=== PATIENT | female | born 1975 | race Asian ===

== ENCOUNTER → 2016-04-07 | Outpatient (CLI) | payer BC ==
[~2016-04-07] MED LIST: FERR325T5 PO; HERBAL PO; PRENTAB26 PO
[2016-04-07 09:59] LABS: ALT/SGPT 12 U/L (12-78); BLOOD UREA NITROGEN 11 mg/dl (7-18); BUN/CREATININE RATIO 19.1 (10-20); CALCIUM 8.6 mg/dl (8.5-10.1); CARBON DIOXIDE 22 mmol/L (21-32); CHLORIDE 106 mmol/L (98-107); CHOLESTEROL 137 mg/dl (0-200); CREATININE 0.57 mg/dl (0.60-1.20); GLUCOSE 86 mg/dl (70-99); SODIUM 138 mmol/L (136-145)
[2016-04-07 10:02] LABS: ALB/GLOB RATIO 1.1 (0.9-2); ALKALINE PHOSPHATASE 33 U/L (45-117); AST/SGOT 11 U/L (15-37); HDL CHOLESTEROL 70 mg/dl; LDL CHOLESTEROL CALCULATED 50 mg/dl; TRIGLYCERIDES 85 mg/dl (0-150); VERY LOW DENSITY LIPOPROT CALC 17 mg/dl
[2016-04-07 10:08] LABS: ESTIMATED AVERAGE GLUCOSE 111 mg/dl; HA1C FLAG Normal (Normal)
== END | disposition home or self-care (01) ==
LOC: C.LAB 08:41
PROVIDERS: ATTEND Family Medicine
DX: E11.9 Type 2 diabetes mellitus without complications (principal)

== ENCOUNTER → 2016-04-09 | Outpatient (CLI) | payer BC ==
[2016-04-09 16:44] LABS: BASO % 0.2 %; BASO ABS # 0.02 K/uL (0-0.2); COMPLETE YES; EOS % 1.2 %; HEMATOCRIT 37.4 % (37-47); IG% 0.2 %; LYMPH % 17.2 %; LYMPH ABS # 1.77 K/uL (1.2-3.4); MEAN CELL VOLUME 88.4 fL (80-100); MEAN CORPUSCULAR HEMOGLOBIN 29.3 pg (25-34); MEAN CORPUSCULAR HGB CONC 33.2 g/dl (32-36); MEAN PLATELET VOLUME 10.4 fL (7.4-10.4); NEUT % 77.2 %; PLATELET COUNT 199 K/uL (130-400); RED BLOOD COUNT 4.23 M/uL (4.2-5.4); WHITE BLOOD COUNT 10.31 K/uL (4.8-10.8)
[2016-04-09 16:46] LABS: URINE APPEARANCE CLEAR (CLEAR); URINE BILIRUBIN NEG (NEG); URINE COLOR YELLOW; URINE EPITHELIAL CELL AUTO >30 /lpf (0-5); URINE NITRITE NEG (NEG); URINE PH 5.5 (4.5-7.5); URINE SPECIFIC GRAVITY 1.021 (1.000-1.030); UROBILINOGEN NEG (NEG)
[2016-04-09 16:50] LABS: MANUAL MICROSCOPIC REQUIRED? NO; REVIEW REQ? NO
[2016-04-14 09:14] LABS: CHLAMYDIA TRACH RNA*** NOT DETECTED (NOT DETECTED); GC (NEIS GONORRHOEAE)RNA** NOT DETECTED (NOT DETECTED)
== END | disposition home or self-care (01) ==
LOC: C.LAB1850 15:02
PROVIDERS: ATTEND Obstetrics & Gynecology
DX: O09.521 Supervision of elderly multigravida, first trimester (principal)

== ENCOUNTER → 2016-06-08 | Outpatient (CLI) | payer BC ==
[2016-06-09 15:26] LABS: AFP CONCENTRATION 23.4 NG/ML; AFP MULTIPLE OF MEDIAN 0.66; AFPTS GESTATIONAL AGE 16.1 WEEKS; AFPTS INSULIN DEP DIABETIC? YES; AFPTS MATERNAL WT 115 LBS; HISTORY OF NTD NO; REPEAT SAMPLE? NO
== END | disposition home or self-care (01) ==
LOC: C.LAB1850 09:29
PROVIDERS: ATTEND Obstetrics & Gynecology
DX: O09.522 Supervision of elderly multigravida, second trimester (principal)

== ENCOUNTER → 2016-09-01 | Outpatient (CLI) | payer BC ==
[2016-09-01 11:55] LABS: URINE APPEARANCE CLOUDY (CLEAR); URINE BILIRUBIN NEG (NEG); URINE COLOR DK YELLOW; URINE EPITHELIAL CELL AUTO >30 /lpf (0-5); URINE NITRITE NEG (NEG); URINE PH 5.5 (4.5-7.5); URINE SPECIFIC GRAVITY 1.035 (1.000-1.030); UROBILINOGEN NEG (NEG)
[2016-09-01 12:08] LABS: MANUAL MICROSCOPIC REQUIRED? NO; REVIEW REQ? YES
[2016-09-01 12:28] LABS: HEMATOCRIT 34.3 % (37-47)
== END | disposition home or self-care (01) ==
LOC: C.LAB1850 10:03
PROVIDERS: ATTEND Obstetrics & Gynecology
DX: O09.522 Supervision of elderly multigravida, second trimester (principal)

== ENCOUNTER 2016-10-24 22:32 | Outpatient (CLI) | payer BC ==
[~2016-10-24] VITALS: Ht 162.6 cm; Wt 62.0 kg
[2016-10-24 23:48] VITALS: Ht 162.6 cm; Wt 62.0 kg
== END 2016-10-25 | disposition home or self-care (01) ==
LOC: C.OPB 22:32 → C.LD 22:32 → C.OPB 10-25
PROVIDERS: ATTEND Obstetrics & Gynecology
DX: O26.893 Other specified pregnancy related conditions, third trimester (principal); Z3A.35 35 weeks gestation of pregnancy

== ENCOUNTER 2016-10-25 15:46 | Inpatient (IN) | payer BC ==
[~2016-10-25] VITALS: Ht 162.6 cm; Wt 63.0 kg
[2016-10-25] MEDS ORDERED: LACTATED RINGER'S 1000ML 1,000 ML IV PRN (15:53)
[2016-10-25] MEDS ORDERED: MISOPROSTOLTAB 50 MCG TAB PO ONE (16:00)
[2016-10-25 16:13] LABS: MEAN CORPUSCULAR HEMOGLOBIN 32.4 pg (25-34); MEAN CORPUSCULAR HGB CONC 33.4 g/dl (32-36); MEAN PLATELET VOLUME 10.4 fL (7.4-10.4); PLATELET COUNT 123 K/uL (130-400); WHITE BLOOD COUNT 7.85 K/uL (4.8-10.8)
[2016-10-25] MEDS ORDERED: PENICILLIN G POTASSIUM IV 6 MU in DEXTROSE 5% 250ML 250 ML IV ONE (16:15)
[2016-10-25 16:16] VITALS: Ht 162.6 cm; Wt 63.0 kg
[2016-10-25] MEDS: LACTATED RINGER'S 1000ML 1,000 ML IV SCH ×2 (16:26→23:53)
[2016-10-25] MEDS: PENICILLIN G POTASSIUM IV 3 MU in DEXTROSE 5% 100ML 100 ML IV PRN (20:29)
[2016-10-25] MEDS ORDERED: EpHEDrine SULFATE INJ 50 MG/ML AMP ONE (22:40)
[2016-10-25] MEDS ORDERED: BUPIVACAINE 0.25% 30 ML VIAL ONE (22:40)
[2016-10-25] MEDS ORDERED: FENTANYL 2MCG/ML ROPIV 1.25MG/ML 100ML BAG EPI ONE (22:41)
[2016-10-25] MEDS ORDERED: FENTANYL CITRATE INJ 50 MCG/1 ML 2 ML VIAL ONE (22:41)
[2016-10-25] MEDS ORDERED: LACTATED RINGER'S 1000ML 500 ML IV PRN (23:36)
[2016-10-25] MEDS ORDERED: NALOXONE HCL INJ 1 MG in SODIUM CHLORIDE 0.9% 1000ML 1,000 ML IV PRN (23:36)
[2016-10-25] MEDS ORDERED: NALBUPHINE HCL INJ 10 MG/ML AMP IV PRN (23:45)
[2016-10-25] MEDS ORDERED: DiphenhydrAMINE HCL 50 MG/ML VIAL IV PRN (23:45)
[2016-10-25] MEDS ORDERED: FENTANYL 2MCG/ML ROPIV 1.25MG/ML 100ML BAG EPI PRN (23:45)
[2016-10-25] MEDS ORDERED: NALOXONE HCL INJ 0.4 MG/1 ML VIAL/CARP IV PRN (23:45)
[2016-10-25] MEDS ORDERED: EpHEDrine SULFATE INJ 50 MG/ML AMP IV PRN (23:45)
[2016-10-25] MEDS ORDERED: ONDANSETRON INJ 2 MG/ML 2 ML VIAL IV PRN (23:45)
[2016-10-26] MEDS: PENICILLIN G POTASSIUM IV 3 MU in DEXTROSE 5% 100ML 100 ML IV PRN (00:54)
[2016-10-26] MEDS ORDERED: OXYTOCIN 30 UNITS/500ML NSS IV ONE (02:45)
[2016-10-26] MEDS ORDERED: ACETAMINOPHEN/CODEINE 300/30MG TAB PO PRN ×2 (04:45)
[2016-10-26] MEDS ORDERED: ACETAMINOPHEN 325 MG TAB PO PRN (04:45)
[2016-10-26] MEDS ORDERED: LANOLIN OINT EXT PRN ×2 (04:45)
[2016-10-26] MEDS ORDERED: DIPHTHERIA/TETANUS/PERTUSSIS 0.5 ML SYR/VIAL IM. ONE (04:45)
[2016-10-26] MEDS ORDERED: OXYCODONE/ACETAMINOPHEN 5-325 TAB PO PRN (04:45)
[2016-10-26] MEDS ORDERED: HYDROCORTISONE ACETATE 25 MG SUPP PR PRN (04:45)
[2016-10-26] MEDS ORDERED: BENZOCAINE 20% AER SPR 82.5 GM CAN EXT PRN (04:45)
[2016-10-26] MEDS ORDERED: OXYTOCIN 30 UNITS/500ML NSS IV PRN (04:45)
[2016-10-26] MEDS ORDERED: SUPERCREAM 0.870 % 15GM JAR EXT PRN (04:45)
--- NOTE | 2016-10-26 06:11 | DELIVERY SUMMARY ---
DATE OF OPERATION: 10/26/2016 Mrs. Pappas presented to labor and delivery on October 25 with premature ROM at 36 weeks. Her cervix was closed and thick at that time. IV penicillin was started, as she had a group B strep positive urinary tract infection in and she was given 5 mcg of oral Cytotec. The heart rate tracing was category 1. This put her into a good labor pattern. At some point later, she was checked and found to be 2 cm by nursing and was very uncomfortable and so, requested an epidural. She rapidly then progressed to fully dilated and on the first push with nursing, it was noted that the baby was likely in a breech position. At this time, I assessed the baby was, in fact, tanya breech. It was +2 to +3 cm station. I discussed briefly with the patient that generally, we perform section on breech babies, but that the baby was quite low on the pelvis and I am not sure this was even possible at this stage. I discussed, also, that vaginal breech delivery was something I had expertise in training in and as well the baby being only 36 weeks and this being her second baby, that delivering vaginally was going to be less risky at this point of the situation than section and they agreed. Patient pushed, the baby's back was then converted to anterior, once delivery of the buttocks and hips was performed. I was then able to release the legs by gentle pressure on each femur, one at a time. Moist towel was used and with the use of gentle traction, I was also able to lengthen the umbilical cord. We rotated the baby to release each arm, there was no nuchal arm, left first, then right and then the behavioral assistant, Alma Delia, aleah, held the feet as I gently put pressure inside of the baby's mouth to ensure baby's head was not overly extended on delivery of the head. Head was delivered easily with no excessive force. A live , cord clamped and cut, cord gases obtained. Placenta was removed with gentle traction. IV Pitocin started. A right medial lateral episiotomy had been performed prior to delivery to ensure most room for delivery of the baby's head. This was repaired with 3-0 Vicryl and it should be noted, her tissues were somewhat friable and I had to reinforce this several times due to tearing. Estimated blood loss was 400 mL. Patient was feeling a little unwell after delivery and lightheaded. As a result, we started another IV and she responded to a fluid bolus with an improvement in pressure and the way she was feeling. Sponge and instrument counts were correct. Estimated blood loss 400 mL. I attest to the content of the Intraoperative Record and any orders documented therein. Any exceptions are noted below. MTDD
--- NOTE | 2016-10-26 08:51 | Anesthesia Procedure Note ---
Anesthesia Epidural Removal Nt Date & Time Oct 26, 2016 at 08:51 Vital Signs Pain Intensity: 3.0 Vital Signs Past 12 Hours Date Time Temp Pulse Resp B/P (MAP) Pulse Ox O2 Delivery O2 Flow Rate FiO2 10/26/16 07:30 Room Air Notes Mental Status: alert / awake / arousable, participated in evaluation Nausea / Vomiting: adequately controlled Pain: adequately controlled Airway Patency, RR, SpO2: stable & adequate BP & HR: stable & adequate Hydration State: stable & adequate Neuraxial Anesthesia: was administered Anesthetic Complications: no major complications apparent, pt satisfied with anesthetic care Epidural: removed without complications, with tip intact
[2016-10-26] MEDS: PRENATAL VITAMIN TAB PO SCH (08:54)
[2016-10-26] MEDS: DOCUSATE SODIUM 100 MG CAP PO SCH ×2 (08:54→20:20)
[2016-10-26 11:45] VITALS: BP 96/67; PULSE 83; TEMP 37.3
[2016-10-26 15:30] VITALS: BP 100/68; PULSE 90; TEMP 36.7
[2016-10-26 19:00] VITALS: BP 101/66; PULSE 101; TEMP 37
[2016-10-26 23:36] VITALS: BP 90/55; PULSE 86; TEMP 36.5
--- NOTE | 2016-10-27 01:54 | OB/GYN Progress Note ---
[employer] Progress Note Date of Service Oct 27, 2016. Subjective conversation w/ patient, physical exam, chart review, lab review Ambulation: limited ambulation Voiding: no voiding problems Diet Tolerance: Regular Diet Lochia: Moderate Feeding Type: Breast Feeding Pain: 6/10 without pain meds Review of Systems Constitutional: No fever Respiratory: No shortness of breath Cardiac: No chest pain Abdomen: No nausea, No vomiting Female : No dysuria Objective Vital Signs Date Time Temp Pulse Resp B/P (MAP) Pulse Ox O2 Delivery O2 Flow Rate FiO2 10/26/16 23:37 Room Air 10/26/16 23:36 36.5 86 18 90/55 (67) Room Air 10/26/16 19:00 37.0 101 20 101/66 (78) Room Air 10/26/16 15:30 36.7 90 20 100/68 (79) Room Air 10/26/16 15:30 Room Air 10/26/16 11:45 37.3 83 18 96/67 (77) 10/26/16 11:15 Room Air 10/26/16 07:30 Room Air Physical Exam General Appearance: WELL-APPEARING Respiratory/Chest: lungs clear, normal breath sounds, no respiratory distress Cardiovascular: regular rate, rhythm Abdomen: normal bowel sounds, non tender, soft Fundus: Firm, Relation to Umbilicus Extremities: non-tender, no pedal edema Laboratory Results Last Resulted 10/25/16 16:05 Medications Current Inpatient Medications Medications (Trade) Dose Ordered Sig/Doreen Route Start Time Stop Time Status Last Admin Dose Admin Oxytocin (Pitocin IV) 30 units UD PRN IV 10/26/16 04:45 11/25/16 04:44 Benzocaine (Dermoplast Aero Spr) 1 appln PRN PRN EXT 10/26/16 04:45 11/25/16 04:44 Cocaine HCl (Supercream 0.870% Cr) BID PRN EXT 10/26/16 04:45 11/09/16 04:44 Hydrocortisone Acetate (Anusol Hc Supp) 25 mg BID PRN MA 10/26/16 04:45 11/25/16 04:44 Lanolin (Lanolin Oint) PRN PRN EXT 10/26/16 04:45 11/25/16 04:44 Prenat Multivit/ [place]/Iron/Folic Ac ( Vitamin Tab) 1 tab DAILY PO 10/26/16 08:00 11/25/16 07:59 10/26/16 08:54 1 TAB Ibuprofen (Motrin Tab) 600 mg Q4H PRN PO 10/26/16 04:45 11/25/16 04:44 Acetaminophen (Tylenol Tab) 650 mg Q6H PRN PO 10/26/16 04:45 11/25/16 04:44 10/26/16 13:30 650 MG Acetaminophen/ Codeine Phosphate (Tylenol w/ Codeine #3 Tab) 1 tab Q4H PRN PO 10/26/16 04:45 11/25/16 04:44 Acetaminophen/ Codeine Phosphate (Tylenol w/ Codeine #3 Tab) 2 tab Q4H PRN PO 10/26/16 04:45 11/25/16 04:44 Bisacodyl (Dulcolax Tab) 5 mg 20 PO 10/27/16 20:00 10/27/16 20:01 Bisacodyl (Dulcolax Supp) 10 mg DAILY PRN MA 10/28/16 07:00 Docusate Sodium (coLACE CAP) 100 mg BID PO 10/26/16 08:00 11/25/16 07:59 10/26/16 20:20 100 MG Assessment and Plan Post- Day Number: 1 Continue Routine Care: Resident Physician Supervision Note: I interviewed and examined the patient. Discussed with Dr. Anderson and agree with findings and plan as documented in the note. Any exceptions or clarifications are listed here: [None] Documented By: Ludmila Saldaña Angélica A/P: This is a 41 y/o female, , s/p breech normal vaginal delivery at 36 weeks. She is ambulating and clinically stable. Plan: - Vitals signs are reviewed and WNL (Tmax 37.3) - Last Hgb is 10.7 (10/25). This AM pending - Blood type A+, GBS pos, Rubella Immune - Routine care - Encourage ambulation, monitor and control pain with medication as needed, continue with regular diet as tolerated and monitor lochia - Stool softeners and sitz bath recommended - Encourage breast feeding and educate about breast feeding Resident Involvement: Resident Care Provided Care Provided: OB Delivery
[2016-10-27 07:33] LABS: HEMATOCRIT 22.6 % (37-47)
[2016-10-27 07:47] VITALS: BP 94/58; PULSE 96; TEMP 36.9; O2SAT 97
[2016-10-27] MEDS: PRENATAL VITAMIN TAB PO SCH (08:57)
[2016-10-27] MEDS: DOCUSATE SODIUM 100 MG CAP PO SCH ×2 (08:57→20:16)
[2016-10-27 11:28] VITALS: BP 93/61; PULSE 84; TEMP 37.1; O2SAT 96
[2016-10-27] MEDS: IBUPROFEN 600 MG TAB PO PRN (11:46)
[2016-10-27] MEDS: FERROUS SULFATE 325 MG TAB PO SCH ×2 (14:47→20:17)
[2016-10-27 16:20] VITALS: BP 92/59; PULSE 81; TEMP 36.9
[2016-10-27] MEDS ORDERED: BISACODYL 5 MG TABEC PO SCH (20:00)
--- NOTE | 2016-10-27 22:48 | Discharge Instructions ---
Discharge Instructions Date of Service Oct 27, 2016. Admission Reason for Admission: Labor Check Discharge Discharge Diagnosis / Problem: after delivery Discharge Goals Goal(s): Routine recovery after delivery Medications Continue Dispensed Medications: supercream, dermaplast, tucks, lansinoh Activity Recommendations Activity Limitations: per Instructions/Follow-up section . Instructions / Follow-Up Instructions / Follow-Up ACTIVITY RECOMMENDATIONS: * Gradual return to full activity over the next 2-3 weeks. * No lifting - nothing heavier than baby over the next 2-3 weeks. * Do not engage in vigorous exercise, sexual activity or sports until cleared by your physician. * Do not drive or operate any motorized equipment until cleared by your physician. * You may shower/bathe daily. MEDICATIONS: For discomfort or pain, you may use Acetaminophen (Tylenol), Ibuprofen (Advil), or Naproxen (Aleve) following the package directions. For constipation you may use Colace following the package directions. BREAST CARE: If you are not breast feeding: * Wear a supportive bra 24 hours a day for one to two weeks. * Avoid stimulating your breasts and nipples as much as possible during the first few weeks after delivery. * When taking a shower, have the warm water hit your back, not breasts. * When your breasts feel full, apply ice packs. Usually three to four times a day helps ease the discomfort. * Take a mild pain medication (Tylenol / Motrin) when you are uncomfortable. If breast feeding: * Use breast milk to lubricate nipples. Lansinoh cream may be used for sore nipples. You do not need to remove cream prior to breast feeding. If using a different brand of cream, check the label for directions regarding removal of cream prior to nursing. * Wear a supportive bra. * If having problems with breasts or breast feeding, call a web consultant or your health care provider. EPISIOTOMY CARE: After delivery, if you have an episiotomy (stitches), the following steps will ease discomfort and aid healing. * For the first 24 hours after delivery, place ice packs next to your episiotomy to help reduce swelling. * After the first 24 hour-period, sitz baths, either portable or in the tub, are suggested. A shower with a shower arm sprayed over the episiotomy may be comforting. * Yecenia care should be done after each voiding and bowel movement. Squirt warm water from a plastic bottle over the perineum (region of the body between the anus and urinary opening) and pat dry. * Use Dermoplast to ease discomfort. Shake container. [place] directly over the episiotomy. Place a Tucks on a clean sanitary pad next to your episiotomy. SPECIAL CARE INSTRUCTIONS: When you are discharged from the hospital, it is important for you to follow the instructions listed below: * During the first week at home, you should be able to care for yourself and your baby. In addition, the usual light household activities are encouraged. * Limit your activities to the way you feel. Do not try to clean the house or move furniture. Be sensible. * If you actively engage in sports and have done so up until the time of your delivery, you may resume these activities as soon as you feel able. This may take up to one month or even longer. Use good judgment. * Continue to take your vitamins for at least six weeks after the of your baby. * Your diet need not be limited unless you were on a special diet before your delivery. Breast-feeding mothers need around 2500 calories per day and at least 64-80 ounces of fluid per day (8 to 10 glasses). * You should eat foods from the four major food groups. Crash diets or fad diets are to be avoided. Eating lean meats, fresh fruits and vegetables, low-fat dairy products, high fiber foods and a regular exercise program, will help you get back to your pre- weight without putting your health at risk. * Constipation is sometimes a problem after delivery. Take a mild laxative as needed. If breast feeding, Milk of Magnesia is acceptable to use. You may use a suppository or Fleets enema if no episiotomy. * A daily shower or tub bath is suggested. Be sure to thoroughly and gently dry the perineum. * A bloody vaginal discharge will usually continue until around four weeks post . A small amount of bleeding may continue for as long as six weeks. Vaginal discharge changes from the bright red bleeding after delivery to pink then brownish and finally yellowish-pink before becoming white and disappearing. * Bleeding may increase with activity. Your first period may come in 4-8 weeks. If you are breast feeding, your period may be delayed even longer. * [place] (sex) can begin whenever both you and your partner feel comfortable and do not have any form of genital infection. It is recommended that you wait at least six weeks for internal and external healing to occur. If you have questions, please talk to your health care practitioner. A condom should be used to prevent infection and . * Foreplay, gentle intercourse and lubrication is very important the first several times to prevent pain. A water-based lubricant such as K-Y jelly or Astroglide may be used. * If you have RH negative blood and your baby is RH positive, you will receive RHOGAM by injection prior to discharge. The nurse will give you a card to keep with you that has the date and place that you received RHOGAM after delivery. * During your care, you had a Rubella screen done to check for the presence of rubella antibodies in your blood. If your test was negative, you will receive a Rubella vaccine prior to discharge. This vaccine may cause a fever, soreness at the injection site and flu-like symptoms. If these symptoms persist, notify your health care practitioner. is not advised for one month after a Rubella vaccine. * Verbalizes understanding of car seat law as reviewed with patient nursing. * Car Seat hand-out given and reviewed with patient by nursing. * Shaken baby information reviewed with patient by nursing. Call you doctor if: * Heavy bleeding (saturating several pads an hour) or passing clots the size of your fist. * A fever >101 degrees F (38.3 degrees C) on two occasions four hours apart and /or chills. * Unusual pain in the pelvic or vaginal areas. * "Baby Blues" lasting longer than two weeks. If you have any questions or concerns, call your health care practitioner at . FOLLOW UP VISIT: * Please call the office at to schedule a 6 week examination. It is important you keep this appointment. It is important for you to make arrangements for either yearly or twice yearly check-ups thereafter. Current Hospital Diet Patient's current hospital diet: Regular OB Diet Discharge Diet Recommended Diet: Regular Diet Pending Studies Studies pending at discharge: no Medical Emergencies . Who to Call and When: Medical Emergencies: If at any time you feel your situation is an emergency, please call 911 immediately. . Non-Emergent Contact Non-Emergency issues call your: Bilingual Manager . . "Provider Documentation" section prepared by Kapil Anderson. . VTE Core Measure Inpt VTE Proph given/why not?: Treatment not indicated
[2016-10-28 00:10] VITALS: BP 99/62; PULSE 105; TEMP 37
--- NOTE | 2016-10-28 06:04 | OB/GYN Progress Note ---
[employer] Progress Note Date of Service Oct 28, 2016. Subjective conversation w/ patient, physical exam, chart review, lab review Ambulation: ambulating normally Voiding: no voiding problems Diet Tolerance: Regular Diet Lochia: Moderate Feeding Type: Breast Feeding Pain: 3/10 pain Review of Systems Constitutional: No fever Respiratory: No shortness of breath Cardiac: No chest pain Abdomen: No nausea, No vomiting Female : No dysuria Objective Vital Signs Date Time Temp Pulse Resp B/P (MAP) Pulse Ox O2 Delivery O2 Flow Rate FiO2 10/28/16 00:10 37.0 105 18 99/62 (74) Room Air 10/28/16 00:10 Room Air 10/27/16 16:20 Room Air 10/27/16 16:20 36.9 81 18 92/59 (70) 10/27/16 11:28 37.1 84 20 93/61 (72) 96 Room Air 10/27/16 07:47 36.9 96 16 94/58 (70) 97 Room Air Physical Exam General Appearance: WELL-APPEARING Respiratory/Chest: lungs clear, normal breath sounds, no respiratory distress Cardiovascular: regular rate, rhythm Abdomen: normal bowel sounds, non tender, soft Fundus: Firm, Relation to Umbilicus (3 FB) Extremities: non-tender, no pedal edema Laboratory Results Last 24 Hours Test 10/27/16 06:42 10/28/16 04:44 Hemoglobin 7.3 g/dL Hematocrit 22.6 % Medications Current Inpatient Medications Medications (Trade) Dose Ordered Sig/Doreen Route Start Time Stop Time Status Last Admin Dose Admin Oxytocin (Pitocin IV) 30 units UD PRN IV 10/26/16 04:45 11/25/16 04:44 Benzocaine (Dermoplast Aero Spr) 1 appln PRN PRN EXT 10/26/16 04:45 11/25/16 04:44 Cocaine HCl (Supercream 0.870% Cr) BID PRN EXT 10/26/16 04:45 11/09/16 04:44 Hydrocortisone Acetate (Anusol Hc Supp) 25 mg BID PRN [place] 10/26/16 04:45 11/25/16 04:44 Lanolin (Lanolin Oint) PRN PRN EXT 10/26/16 04:45 11/25/16 04:44 Prenat Multivit/ Study Assistant/Iron/Folic Ac ( Vitamin Tab) 1 tab DAILY PO 10/26/16 08:00 11/25/16 07:59 10/27/16 08:57 1 TAB Ibuprofen (Motrin Tab) 600 mg Q4H PRN PO 10/26/16 04:45 11/25/16 04:44 10/27/16 11:46 600 MG Acetaminophen (Tylenol Tab) 650 mg Q6H PRN PO 10/26/16 04:45 11/25/16 04:44 10/26/16 13:30 650 MG Acetaminophen/ Codeine Phosphate (Tylenol w/ Codeine #3 Tab) 1 tab Q4H PRN PO 10/26/16 04:45 11/25/16 04:44 Acetaminophen/ Codeine Phosphate (Tylenol w/ Codeine #3 Tab) 2 tab Q4H PRN PO 10/26/16 04:45 11/25/16 04:44 Bisacodyl (Dulcolax Supp) 10 mg DAILY PRN [place] 10/28/16 07:00 Docusate Sodium (coLACE CAP) 100 mg BID PO 10/26/16 08:00 11/25/16 07:59 10/27/16 20:16 100 MG Ferrous Sulfate (Feosol Tab) 325 mg BIDM PO 10/27/16 11:15 11/26/16 11:14 10/27/16 20:17 325 MG Assessment and Plan Post- Day Number: 2 Continue Routine Care: A/P: This is a 41 y/o female, , s/p breech normal vaginal delivery at 36 weeks. She is ambulating and clinically stable. Plan: - Vitals signs are reviewed and WNL (Tmax 37.3) - Last Hgb is 7.3 (10/27). This AM pending - Blood type A+, GBS pos, Rubella Immune - No signs of depression. - Routine care - Discussed resting, feeding, pain control, mastitis, control, follow up in 6 weeks and reasons to call sooner, if necessary. - Continue with pain medication as needed, and continue vitamins. - Encourage breast feeding and educate about breast feeding - Patient understands and keen for home. - Plan to discharge home Resident Physician Supervision Note: I was present with Dr. Anderson during the history and exam. I discussed the case with the resident and agree with the findings and plan as documented in the note. Any exceptions or clarifications are listed here: [None] Documented By: Estephanie Hendrickson Resident Involvement: Resident Care Provided Care Provided: OB Delivery
[2016-10-28] MEDS ORDERED: BISACODYL 10 MG SUPP PR PRN (07:00)
[2016-10-28 07:13] LABS: HEMATOCRIT 24.8 % (37-47); MEAN CELL VOLUME 98.8 fL (80-100); MEAN CORPUSCULAR HEMOGLOBIN 31.9 pg (25-34); MEAN CORPUSCULAR HGB CONC 32.3 g/dl (32-36); PLATELET COUNT 139 K/uL (130-400); RED BLOOD COUNT 2.51 M/uL (4.2-5.4); WHITE BLOOD COUNT 9.95 K/uL (4.8-10.8)
[2016-10-28 07:35] VITALS: BP 102/63; PULSE 94; TEMP 37.1; O2SAT 98
[2016-10-28] MEDS: FERROUS SULFATE 325 MG TAB PO SCH ×2 (08:19→17:39)
[2016-10-28] MEDS: DOCUSATE SODIUM 100 MG CAP PO SCH ×2 (08:19→17:39)
[2016-10-28] MEDS: PRENATAL VITAMIN TAB PO SCH (08:19)
[2016-10-28 14:48] VITALS: BP_DIAS 63; PULSE 94; TEMP 37.1
[2016-10-28 15:30] VITALS: BP 99/63; PULSE 88; TEMP 36.5
[2016-10-28] MEDS: IBUPROFEN 600 MG TAB PO PRN (17:39)
== END 2016-10-28 17:45 | disposition home or self-care (01) | DRG 775 ==
LOC: C.OPB 15:46 → C.LD 15:46 → C.OPB 15:54 → C.OBG 10-26 11:27
PROVIDERS: ADMIT Obstetrics & Gynecology; ATTEND Obstetrics & Gynecology
PROC: 0W8NXZZ Division of Female Perineum, External Approach (ICD-10-PCS; principal; 2016-10-26)
PROC: 10E0XZZ Delivery of Products of Conception, External Approach (ICD-10-PCS; principal; 2016-10-26)
DX: O42.913 Preterm premature rupture of membranes, unspecified as to length of time between rupture and onset of labor, third trimester (principal); O32.1XX0 Maternal care for breech presentation, not applicable or unspecified; O99.824 Streptococcus B carrier state complicating childbirth; Z37.0 Single live birth; Z3A.36 36 weeks gestation of pregnancy; O26.893 Other specified pregnancy related conditions, third trimester; Z3A.35 35 weeks gestation of pregnancy

== ENCOUNTER → 2016-12-11 | Outpatient (CLI) | payer BC ==
[~2016-12-11] MED LIST changes: -FERR325T5 PO; -HERBAL PO
== END | disposition home or self-care (01) ==
LOC: C.PAPS 15:26
PROVIDERS: ATTEND Obstetrics & Gynecology
DX: Z39.2 Encounter for routine postpartum follow-up (principal)

== ENCOUNTER → 2016-12-15 | Outpatient (CLI) | payer BC | END | disposition home or self-care (01) | LOC: C.LAB1850 07:29 | PROVIDERS: ATTEND Obstetrics & Gynecology | DX: O24.410 Gestational diabetes mellitus in pregnancy, diet controlled (principal); Z3A.00 Weeks of gestation of pregnancy not specified ==

== ENCOUNTER → 2017-05-10 | Outpatient (CLI) | payer OTHER ==
--- NOTE | 2017-05-10 14:51 | MAMMOGRAPHY REPORT ---
BILATERAL DIGITAL DIAGNOSTIC MAMMOGRAM TOMOSYNTHESIS WITH CAD AND TARGETED BILATERAL ULTRASOUND: 05/10 CLINICAL HISTORY: 41-year-old lactating female presents with resolving right mastitis and left palpab le, painful lump in the upper outer quadrant. No family history of breast cancer. No skin thickenin g appreciated. There is purplish discoloration in the 1:00 left breast in the area of concern. TECHNIQUE: Breast tomosynthesis in addition to standard 2D mammography was performed. Current study was also evaluated with a Computer Aided Detection (CAD) system. COMPARISON: Comparison is made to exam dated: 02/13/2014 ultrasound - [facility]. BREAST COMPOSITION: The tissue of both breasts is extremely dense, which lowers the sensitivity of m ammography. FINDINGS: A triangular palpable marker overlies the upper outer posterior left breast, denoting the a el of palpable, painful lump pointed out by the patient. No focal skin thickening is appreciated ma mmographically. No obvious mass, architectural distortion, asymmetry or suspicious microcalcificatio ns. There are a few scattered punctate benign-appearing microcalcifications in both breasts. On visual inspection in the area of concern in the left upper outer quadrant, there is a 3 cm serpigi nous area of purplish discoloration. On palpation, there is a firm serpiginous tubular structure. O n ultrasound, there is a superficial tubular hypoechoic and anechoic noncompressible mass. No general internal medicine doctor al vascularity is documented. 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 Additional ultrasound was performed in the right breast, lower outer and lower inner quadrants in the area of mastitis described by the patient. No focal skin thickening is appreciated. No drainable f luid collection identified. No suspicious solid or cystic mass. Lactational changes are evident. IMPRESSION: ACR BI-RADS CATEGORY 2: BENIGN, TARGETED ULTRASOUND ACR BI-RADS CATEGORY 2: BENIGN 1. 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 Conservative treatment w ith hot compresses is recommended. Patient should consult with her referring provider if she is able to take any NSAIDs and/or Aspirin while nursing. 2. The reported mastitis in the inferior right breast is not evident mammographically or sonographic ally. Currently, there is no focal area of skin thickening, drainable fluid collection or a suspicio us solid or cystic mass. Continued clinical follow-up is recommended to ensure complete resolution. These results and recommendations were discussed with the patient at the time of the exam. Approximately 10% of breast cancers are not detected with mammography. A negative mammographic report should not delay biopsy if a clinically suggestive mass is present. Anju Varma M.D. ay/:05/10/2017 09:22:04 Exhibit Technician: Yoanna HERNÁNDEZ(R)(M), [facility] letter sent: Normal 1/2 BI-RADS Code: ACR BI-RADS Category 2: Benign Ultrasound BI-RADS: ACR BI-RADS Category 2: Benign
== END | disposition home or self-care (01) ==
LOC: C.MAMM 08:39
PROVIDERS: ATTEND Physician Assistant
DX: N63.21 Unspecified lump in the left breast, upper outer quadrant (principal)